=== PATIENT | female | born 2000 | race Caucasian/White ===

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

== ENCOUNTER 2018-01-16 15:51 | Emergency (ER) | payer MEDICAID ==
[~2018-01-16] VITALS: Ht 167.6 cm; Wt 68.2 kg
[2018-01-16 15:57] VITALS: Ht 167.6 cm; Wt 68.2 kg
[2018-01-16] MEDS ORDERED: EC-NAPROSYN500 MG PO (17:34)
[2018-01-16 17:43] VITALS: BP 120/77
== END 2018-01-16 17:43 | disposition home or self-care (01) ==
LOC: D.ER 15:51
DX: K08.89 Other specified disorders of teeth and supporting structures (principal)

== ENCOUNTER 2018-02-12 23:46 | Emergency (ER) | payer MEDICAID ==
[~2018-02-12] VITALS: Ht 167.6 cm; Wt 59.1 kg
[~2018-02-12 23:46] MED LIST changes: +EC-NAPROSYN500 MG PO
[2018-02-12 23:57] VITALS: BP 116/62; Ht 167.6 cm; Wt 59.1 kg
== END 2018-02-13 01:16 | disposition home or self-care (01) ==
LOC: D.ER 23:46
DX: T78.40XA Allergy, unspecified, initial encounter (principal); X58.XXXA Exposure to other specified factors, initial encounter; M54.2 Cervicalgia

== ENCOUNTER → 2018-07-05 12:03 | Outpatient (CLI) | payer MEDICAID ==
[~2018-07-05 12:03] MED LIST changes: +AMOXICILLIN500 M1; +FLAGYL500 MG PO; +HYDROCODON-ACE1 EAC2 PO; +TALWIN NX1 TAB PO; +VIBRAMYCIN 100100 MG PO; +VOLTAREN75 MG PO
[2018-07-05 12:21] LABS: BASOPHILS 0.2 % (0-2); EOSINOPHILS 2.6 % (0-7); HEMATOCRIT 33.3 % (36.0-48.0); HEMOGLOBIN 11.3 g/dL (12-16); LYMPHOCYTES 32.4 % (15-50); MCH 27.6 pg (26.0-34.0); MCHC 33.9 g/dL (31.0-37.0); MCV 81.4 fL (80.0-100.0); MEAN PLATELET VOLUME 9.9 fL (7.4-10.4); MONOCYTES 7.8 % (2-11); PLATELET COUNT 333 10x3/uL (130-400); RBC 4.09 10x6/uL (4.00-5.40); WBC 6.5 10x3/uL (4.8-10.8)
[2018-07-05 12:31] LABS: CALC OSMOLALITY 276 mosm/kg (275-300); CALCIUM 8.2 mg/dL (8.5-10.1); CHLORIDE - SERUM 105 mmol/L (98-107); CREATININE - SERUM 0.5 mg/dL (0.6-1.3); GLUCOSE 99 mg/dL (74-106); SODIUM 139 mmol/L (136-145); UREA NITROGEN 9 mg/dL (7-18); eGFR NON AFRICAN AMERICAN > 90 mL/min (90-120)
== END | disposition home or self-care (01) ==
LOC: D.LABREF 12:03
PROVIDERS: Internal Medicine Pulmonary Disease
DX: E84.9 Cystic fibrosis, unspecified (principal)

== ENCOUNTER 2018-07-07 17:46 | Emergency (ER) | payer MEDICAID ==
[~2018-07-07] VITALS: Ht 167.6 cm; Wt 68.2 kg
[~2018-07-07 17:46] MED LIST changes: -AMOXICILLIN500 M1; -FLAGYL500 MG PO; -HYDROCODON-ACE1 EAC2 PO; -TALWIN NX1 TAB PO; -VIBRAMYCIN 100100 MG PO; -VOLTAREN75 MG PO
[2018-07-07 18:19] LABS: BASOPHILS 0.2 % (0-2); EOSINOPHILS 2.7 % (0-7); HEMATOCRIT 32.5 % (36.0-48.0); HEMOGLOBIN 10.9 g/dL (12-16); IMMATURE GRANULOCYTES 0.2 % (0-5); LYMPHOCYTES 43.6 % (15-50); MCH 27.2 pg (26.0-34.0); MCHC 33.5 g/dL (31.0-37.0); MEAN PLATELET VOLUME 10.2 fL (7.4-10.4); MONOCYTES 7.3 % (2-11); PLATELET COUNT 341 10x3/uL (130-400); RBC 4.01 10x6/uL (4.00-5.40); RDW 12.8 % (11.5-14.5)
[2018-07-07 18:20] VITALS: BP 118/79; Ht 167.6 cm; Wt 68.2 kg
[2018-07-07 18:44] LABS: CALC OSMOLALITY 277 mosm/kg (275-300); CARBON DIOXIDE 25.5 mmol/L (21.0-32.0); CHLORIDE - SERUM 106 mmol/L (98-107); CREATININE - SERUM 0.5 mg/dL (0.6-1.3); GLUCOSE 75 mg/dL (74-106); POTASSIUM - SERUM 3.6 mmol/L (3.5-5.1); SODIUM 140 mmol/L (136-145); UREA NITROGEN 13 mg/dL (7-18); eGFR NON AFRICAN AMERICAN > 90 mL/min (90-120)
== END 2018-07-07 19:58 | disposition home or self-care (01) ==
LOC: D.ER 17:46
PROVIDERS: Emergency Medicine
DX: R21 Rash and other nonspecific skin eruption (principal)

== ENCOUNTER → 2018-07-07 19:18 | Outpatient (CLI) | payer MEDICAID ==
[2018-07-07 18:20] VITALS: BMI 24.2
== END | disposition home or self-care (01) ==
LOC: D.ER 19:18
PROVIDERS: ATTEND Internal Medicine Pulmonary Disease
DX: E84.9 Cystic fibrosis, unspecified (principal)

== ENCOUNTER 2018-07-27 23:03 | Emergency (ER) | payer MEDICAID ==
[~2018-07-27] VITALS: Ht 167.6 cm; Wt 69.5 kg
[2018-07-27 23:12] VITALS: Ht 167.6 cm; Wt 69.5 kg
[2018-07-27] MEDS ORDERED: HYDROCODON-ACE1 EAC2 PO (23:45)
[2018-07-28 00:31] VITALS: BP 127/85
== END 2018-07-28 00:32 | disposition home or self-care (01) ==
LOC: D.ER 23:03
DX: T23.202A Burn of second degree of left hand, unspecified site, initial encounter (principal); T23.201A Burn of second degree of right hand, unspecified site, initial encounter; T22.212A Burn of second degree of left forearm, initial encounter; T22.211A Burn of second degree of right forearm, initial encounter; X10.2XXA Contact with fats and cooking oils, initial encounter; Y93.G3 Activity, cooking and baking; Y92.010 Kitchen of single-family (private) house as the place of occurrence of the external cause

== ENCOUNTER 2018-08-07 19:50 | Emergency (ER) | payer MEDICAID ==
[~2018-08-07] VITALS: Ht 167.6 cm; Wt 69.9 kg
[~2018-08-07 19:50] MED LIST changes: +HYDROCODON-ACE1 EAC2 PO
[2018-08-07 19:53] VITALS: Ht 167.6 cm; Wt 69.9 kg
[2018-08-07] MEDS ORDERED: VOLTAREN75 MG PO (21:24)
[2018-08-07] MEDS ORDERED: VIBRAMYCIN 100100 MG PO (21:24)
[2018-08-07 21:43] VITALS: BP 119/76
== END 2018-08-07 21:44 | disposition home or self-care (01) ==
LOC: D.ER 19:50
DX: L03.113 Cellulitis of right upper limb (principal); T23.001A Burn of unspecified degree of right hand, unspecified site, initial encounter; X10.2XXA Contact with fats and cooking oils, initial encounter; Y93.89 Activity, other specified; Y92.89 Other specified places as the place of occurrence of the external cause

== ENCOUNTER 2018-10-02 13:25 | Emergency (ER) | payer MEDICAID ==
[~2018-10-02] VITALS: Ht 167.6 cm; Wt 68.2 kg
[~2018-10-02 13:25] MED LIST changes: +VIBRAMYCIN 100100 MG PO; +VOLTAREN75 MG PO
[2018-10-02 13:29] VITALS: Ht 167.6 cm; Wt 68.2 kg
[2018-10-02 13:54] LABS: APPEARANCE CLEAR (CLEAR); BILIRUBIN NEGATIVE (NEGATIVE); COLOR YELLOW (YELLOW); GLUCOSE NEGATIVE (NEGATIVE); HCG URINE NEGATIVE (NEGATIVE); KETONE NEGATIVE (NEGATIVE); NITRITE NEGATIVE (NEGATIVE); PROTEIN NEGATIVE (NEGATIVE); SPECIFIC GRAVITY 1.015 (1.005-1.020); UROBILINOGEN NORMAL (NORMAL)
[2018-10-02 13:57] LABS: BACTERIA FEW /hpf (NONE SEEN); EPITHELIAL CELLS 0-5 /hpf (0-5); RED CELLS - URINE 0-5 /hpf (0-5); WHITE CELLS - URINE 0-5 /hpf (0-5)
[2018-10-02 14:08] LABS: BASOPHILS 0.1 % (0-2); EOSINOPHILS 0.9 % (0-7); HEMATOCRIT 36.4 % (36.0-48.0); HEMOGLOBIN 12.4 g/dL (12-16); IMMATURE GRANULOCYTES 0.1 % (0-5); LYMPHOCYTES 23.8 % (15-50); MCH 27.3 pg (26.0-34.0); MCHC 34.1 g/dL (31.0-37.0); MEAN PLATELET VOLUME 9.7 fL (7.4-10.4); MONOCYTES 6.3 % (2-11); NEUTROPHILS 68.8 % (40-80); PLATELET COUNT 378 10x3/uL (130-400); RBC 4.55 10x6/uL (4.00-5.40); RDW 13.3 % (11.5-14.5); WBC 7.5 10x3/uL (4.8-10.8)
[2018-10-02 14:17] LABS: ALBUMIN 3.6 g/dL (3.4-5.0); ALKALINE PHOSPHATASE 137 U/L (46-116); ALT (SGPT) 39 U/L (10-68); BILIRUBIN - TOTAL 0.25 mg/dL (0.2-1.3); CALC OSMOLALITY 276 mosm/kg (275-300); CALCIUM 8.8 mg/dL (8.5-10.1); CARBON DIOXIDE 22.8 mmol/L (21.0-32.0); CHLORIDE - SERUM 104 mmol/L (98-107); CREATININE - SERUM 0.6 mg/dL (0.6-1.3); POTASSIUM - SERUM 3.9 mmol/L (3.5-5.1); PROTEIN - SERUM 7.9 g/dL (6.4-8.2); SODIUM 138 mmol/L (136-145); UREA NITROGEN 10 mg/dL (7-18); eGFR NON AFRICAN AMERICAN > 90 mL/min (90-120)
[2018-10-02] MEDS ORDERED: FLAGYL500 MG PO (14:20)
[2018-10-02 14:26] LABS: GLUCOSE 127 mg/dL (74-106)
[2018-10-02 15:03] VITALS: BP 122/74
== END 2018-10-02 15:04 | disposition home or self-care (01) ==
LOC: D.ER 13:25
PROVIDERS: Emergency Medicine
DX: A59.01 Trichomonal vulvovaginitis (principal); G43.909 Migraine, unspecified, not intractable, without status migrainosus

== ENCOUNTER 2018-10-16 12:30 | Emergency (ER) | payer MEDICAID ==
[~2018-10-16] VITALS: Ht 162.6 cm; Wt 68.2 kg
[~2018-10-16 12:30] MED LIST changes: +FLAGYL500 MG PO
[2018-10-16 12:35] VITALS: Ht 162.6 cm; Wt 68.2 kg
[2018-10-16] MEDS ORDERED: AMOXICILLIN500 M1 (12:36)
[2018-10-16] MEDS ORDERED: TALWIN NX1 TAB PO (14:23)
[2018-10-16 14:31] VITALS: BP 122/70
== END 2018-10-16 14:31 | disposition home or self-care (01) ==
LOC: D.ER 12:30
DX: K08.89 Other specified disorders of teeth and supporting structures (principal)

== ENCOUNTER 2020-08-30 03:48 | Inpatient (IN) | payer OTHER ==
[~2020-08-30] VITALS: Ht 162.6 cm; Wt 64.4 kg
[~2020-08-30 03:48] MED LIST changes: +AMOXICILLIN500 M1; +LEVOFLOXACIN500 MG PO; +MUCINEX DM ER1 EAC1 PO; +TALWIN NX1 TAB PO; +TESSALON PERLE100 MG PO; +ZITHROMAX500 MG PO; +ZYVOX600 MG PO
[2020-08-30] MEDS ORDERED: CLARITIN 10 MG10 MG PO (03:56)
[2020-08-30 04:14] LABS: BILIRUBIN NEGATIVE (NEGATIVE); KETONE NEGATIVE mg/dL (< 1+); NITRITE NEGATIVE (NEGATIVE); PH 5.5 (5.0-8.0); SQUAMOUS EPITHELIAL 1 HPF (0-4); UROBILINOGEN NORMAL mg/dL (< 2); WHITE CELLS - URINE 1 HPF (0-4)
[2020-08-30 04:17] LABS: UDS - AMPHET NEGATIVE QUAL (NEGATIVE); UDS - BARB NEGATIVE QUAL (NEGATIVE); UDS - BENZO NEGATIVE QUAL (NEGATIVE); UDS - COCAINE NEGATIVE QUAL (NEGATIVE); UDS - OPIATE POSITIVE QUAL (NEGATIVE); UDS - PCP NEGATIVE QUAL (NEGATIVE); UDS - THC NEGATIVE QUAL (NEGATIVE)
[2020-08-30 04:23] LABS: BASOPHILS 0.4 % (0-2); HEMATOCRIT 41.2 % (36.0-48.0); LYMPHOCYTES 37.9 % (15-50); MCH 29.7 pg (26.0-34.0); MCHC 33.9 g/dL (31.0-37.0); MCV 87.7 fL (80.0-100.0); MEAN PLATELET VOLUME 7.7 fL (7.4-10.4); MONOCYTES 8.5 % (2-11); NEUTROPHILS 48.2 % (40-80); PLATELET COUNT 349 10x3/uL (130-400); RDW 12.3 % (11.5-14.5); WBC 8.6 10x3/uL (4.8-10.8)
[2020-08-30 04:37] LABS: CALC OSMOLALITY 280 mosm/kg (275-300); CALCIUM 8.5 mg/dL (8.5-10.1); CHLORIDE - SERUM 103 mmol/L (98-107); CREATININE - SERUM 0.6 mg/dL (0.6-1.3); GLUCOSE 111 mg/dL (74-106); SODIUM 140 mmol/L (136-145); UREA NITROGEN 16 mg/dL (7-18); eGFR NON AFRICAN AMERICAN > 90 mL/min (90-120)
[2020-08-30 04:42] LABS: ALKALINE PHOSPHATASE 102 U/L (30-120); ALT (SGPT) 32 U/L (10-68); BILIRUBIN - TOTAL 0.25 mg/dL (0.2-1.3); PROTEIN - SERUM 7.3 g/dL (6.4-8.2)
[2020-08-30 04:44] LABS: C-REACTIVE PROTEIN < 0.2 mg/dL (0.0-0.9)
--- NOTE | 2020-08-30 06:30 | NUR ---
LAB AT BEDSIDE. BOTH SETS OF BLOOD CULTURES DRAWN AT THIS TIME.
[2020-08-30 11:07] VITALS: BP 107/71
--- NOTE | 2020-08-30 19:35 | NUR ---
RECEIVED REPORT, WILL ASSUME CARE OF PT, ASKING FOR PAIN MEDS, PT JUST HAD AT 164, EXPLAINED SHE COULD HAVE AT 2047, BED IS LOW, SRX2, CALL LIGHT IN REACH, WILL CONTINUE PLAN OF CARE
[2020-08-30 20:59] VITALS: BP 121/74
[2020-08-31 01:58] VITALS: BP 113/65
[2020-08-31 05:02] VITALS: BP 126/73
[2020-08-31 05:32] LABS: BASOPHILS 0.2 % (0-2); EOSINOPHILS 0.5 % (0-7); HEMATOCRIT 36.4 % (36.0-48.0); HEMOGLOBIN 12.2 g/dL (12-16); LYMPHOCYTES 31.4 % (15-50); MCH 29.7 pg (26.0-34.0); MCHC 33.5 g/dL (31.0-37.0); MCV 88.9 fL (80.0-100.0); MEAN PLATELET VOLUME 8.1 fL (7.4-10.4); MONOCYTES 8.9 % (2-11); PLATELET COUNT 353 10x3/uL (130-400); RDW 11.8 % (11.5-14.5); WBC 9.4 10x3/uL (4.8-10.8)
[2020-08-31 05:47] LABS: ALBUMIN 3.8 g/dL (3.4-5.0); ALKALINE PHOSPHATASE 77 U/L (30-120); ALT (SGPT) 26 U/L (10-68); BILIRUBIN - TOTAL 0.22 mg/dL (0.2-1.3); CALCIUM 8.4 mg/dL (8.5-10.1); CARBON DIOXIDE 26.5 mmol/L (21.0-32.0); CHLORIDE - SERUM 106 mmol/L (98-107); CREATININE - SERUM 0.6 mg/dL (0.6-1.3); GLUCOSE 123 mg/dL (74-106); MAGNESIUM - SERUM 1.7 mg/dL (1.8-2.4); PHOSPHOROUS 4.5 mg/dL (2.5-4.9); POTASSIUM - SERUM 3.6 mmol/L (3.5-5.1); PROTEIN - SERUM 6.3 g/dL (6.4-8.2); SODIUM 142 mmol/L (136-145); eGFR NON AFRICAN AMERICAN > 90 mL/min (90-120)
[2020-08-31 05:48] LABS: CALC OSMOLALITY 282 mosm/kg (275-300); UREA NITROGEN 11 mg/dL (7-18)
[2020-08-31 08:06] VITALS: BP 125/56
[2020-08-31 11:05] VITALS: Ht 162.6 cm; Wt 64.4 kg
--- NOTE | 2020-08-31 11:34 | NUR ---
NUTRITION CONSULT: Please see Nutrition Assessment dated 08/31/20 under ASSESSMENTS tab. Shawanda Lewis, MS, RD, LD
[2020-08-31 15:32] VITALS: BP 116/68
[2020-08-31 20:42] VITALS: BP 130/63
[2020-09-01 01:13] VITALS: BP 140/68
[2020-09-01 01:20] VITALS: BP 125/74
[2020-09-01 04:18] LABS: BASOPHILS 0.2 % (0-2); EOSINOPHILS 0 % (0-7); HEMATOCRIT 36.5 % (36.0-48.0); HEMOGLOBIN 12.5 g/dL (12-16); IMMATURE GRANULOCYTES 0.4 % (0-5); LYMPHOCYTE ABS# 2.17 10x3/uL (1.18-3.74); LYMPHOCYTES 20.5 % (15-50); MCH 30.3 pg (26.0-34.0); MCHC 34.2 g/dL (31.0-37.0); MCV 88.4 fL (80.0-100.0); MEAN PLATELET VOLUME 9.3 fL (7.4-10.4); MONOCYTES 5.5 % (2-11); NEUTROPHIL ABS# 7.78 10x3/uL (1.56-6.13); NEUTROPHILS 73.4 % (40-80); PLATELET COUNT 356 10x3/uL (130-400); RBC 4.13 10x6/uL (4.00-5.40); RDW 11.7 % (11.5-14.5); WBC 10.6 10x3/uL (4.8-10.8)
[2020-09-01 04:37] LABS: ALBUMIN 3.8 g/dL (3.4-5.0); ALKALINE PHOSPHATASE 95 U/L (30-120); ALT (SGPT) 31 U/L (10-68); BILIRUBIN - TOTAL 0.19 mg/dL (0.2-1.3); CALCIUM 8.2 mg/dL (8.5-10.1); CARBON DIOXIDE 27.5 mmol/L (21.0-32.0); CHLORIDE - SERUM 102 mmol/L (98-107); CREATININE - SERUM 0.7 mg/dL (0.6-1.3); MAGNESIUM - SERUM 1.9 mg/dL (1.8-2.4); PHOSPHOROUS 4.1 mg/dL (2.5-4.9); POTASSIUM - SERUM 3.8 mmol/L (3.5-5.1); PROTEIN - SERUM 7.1 g/dL (6.4-8.2); SODIUM 139 mmol/L (136-145); UREA NITROGEN 13 mg/dL (7-18); VANCOMYCIN - TROUGH 4.2 ug/mL (10.0-20.0); eGFR NON AFRICAN AMERICAN > 90 mL/min (90-120)
[2020-09-01 04:44] LABS: CALC OSMOLALITY 282 mosm/kg (275-300); GLUCOSE 196 mg/dL (74-106)
[2020-09-01 08:23] VITALS: BP 143/88
[2020-09-01 16:10] VITALS: BP 133/86
[2020-09-01 20:35] VITALS: BP 111/61
--- NOTE | 2020-09-01 21:02 | NUR ---
1924 PULMOZYME GIVEN VIA NEBULIZER
[2020-09-02 01:21] VITALS: BP 109/65
[2020-09-02 05:28] VITALS: BP 144/70
--- NOTE | 2020-09-02 08:13 | NUR ---
AM MEDS GIVEN AT THIS TIME. PT SITTING UP IN BED WITH HOB RAISED, RR EVEN NON LABORED ON ROOM AIR. PT AAOX4 , PLEASANT. FRESH DRINK GIVEN PER REQUEST. NO PAIN OR NEEDS VOICED AT THIS TIME. CLWR.
[2020-09-02 08:55] LABS: ALBUMIN 3.7 g/dL (3.4-5.0); ALKALINE PHOSPHATASE 113 U/L (30-120); BILIRUBIN - TOTAL 0.18 mg/dL (0.2-1.3); CALCIUM 8.5 mg/dL (8.5-10.1); CARBON DIOXIDE 30.8 mmol/L (21.0-32.0); CHLORIDE - SERUM 103 mmol/L (98-107); CREATININE - SERUM 0.6 mg/dL (0.6-1.3); MAGNESIUM - SERUM 1.8 mg/dL (1.8-2.4); PHOSPHOROUS 4.6 mg/dL (2.5-4.9); PROTEIN - SERUM 7.1 g/dL (6.4-8.2); SODIUM 140 mmol/L (136-145); eGFR NON AFRICAN AMERICAN > 90 mL/min (90-120)
[2020-09-02 08:56] LABS: BASOPHILS 0.4 % (0-2); HEMATOCRIT 38.9 % (36.0-48.0); HEMOGLOBIN 13.2 g/dL (12-16); LYMPHOCYTES 46.2 % (15-50); MCHC 33.9 g/dL (31.0-37.0); MCV 88.6 fL (80.0-100.0); MEAN PLATELET VOLUME 7.7 fL (7.4-10.4); MONOCYTES 9.6 % (2-11); NEUTROPHILS 40.8 % (40-80); PLATELET COUNT 385 10x3/uL (130-400); RBC 4.38 10x6/uL (4.00-5.40); RDW 12.3 % (11.5-14.5)
[2020-09-02 08:59] LABS: ALT (SGPT) 59 U/L (10-68); CALC OSMOLALITY 277 mosm/kg (275-300); GLUCOSE 98 mg/dL (74-106); UREA NITROGEN 9 mg/dL (7-18)
[2020-09-02 09:00] VITALS: BP 97/68
[2020-09-02 09:23] LABS: WBC 6.5 10x3/uL (4.8-10.8)
[2020-09-02 12:00] VITALS: BP 110/65
[2020-09-02] MEDS ORDERED: OMNICEF300 MG PO (12:06)
[2020-09-02] MEDS ORDERED: Pancrease 5000,17,00 PO (12:07)
--- NOTE | 2020-09-02 12:43 | NUR ---
NOTIFIED PT REGARDING PLAN TO D/C TODAY. PT STATES UNDERSTANDING. NO QUESTIONS VOICED. NO NEEDS VOICED AT THIS TIME. CLWR.
--- NOTE | 2020-09-02 13:47 | NUR ---
D/C INSTRUCTIONS GIVEN TO PT AT THIS TIME. PT STATES UNDERSTANDING, PRESCRIPTION GIVEN TO PT. PT DENIES ANY QUESTIONS. PT GATHERING BELONGINGS AND CALLED HER FAMILY FOR RIDE HOME. IV D/C , CATHETER INTACT, DRESSING APPLIED. CLWR.
--- NOTE | 2020-09-02 14:12 | NUR ---
PT REFUSED WHEELCHAIR D/C. PT AMBULATED WITH ALL BELONGINGS TO PRIVATE VEHICLE. NO DISTRESS NOTED ON DEPARTURE.
--- NOTE | 2020-09-02 14:29 | MORECARE ---
CASE MANAGEMENT DISCHARGE SUMMARY PATIENT: TEOFILO CLARKE UNIT: [id number] ADM DATE: 08/30/20 AGE: 19 : 98 SEX: F ROOM/BED: D.2133 AUTHOR: WENDY,DOC PHYSICIAN: REFERRING PHYSICIAN: RICHA DE JESUS MD DATE OF SERVICE: 09/02/20 Case Management Discharge Planning Summary COMMENTS ENTERED DATE: 09/02/20 14:24 CT COMMENT TYPE: Discharge Planning REVIEWER: Earline Pryor CM TO ASSESS DISCHARGE NEEDS, NO NEEDS VOICED, PT TO RETURN TO HOME OF PARENT WHO ARE PROVIDING TRANSPORTATION HOME. PT GETTING DISCHARRGE INSTURCTIONS FOR RN AT TIME TO IMM SIGNING. COPY SERVED TO PATIENT AND SIGNED COPY TO CHART. NO NEEDS AT THIS TIME. DCP REVIEW SUMMARY ANTICIPATED D/C DATE: 09/02/2020 EXPECTED LOS : 3 CASE STATUS: DCP Initiated INITIAL REVIEW: 08/30/2020 INITIAL REVIEWER: Earline Pryor FINAL DISCHARGE DISPOSITION: 01 : Home or Self Care (Routine Discharge) FINAL REVIEWER: FINAL REVIEW DATE: NMP [employer] Questions & Answers QUESTION: ANSWER : PATIENT: TEOFILO CLARKE ENCOUNTER: [id number] MEDICAL RECORD#: [id number] ADMISSION DATE: 08/30/2020 DISCHARGE DATE: 09/02/2020 ATTENDING MD: RICHA TELLO : AGE: 19 MARITAL STATUS: S DC PLAN ID: [id number] FACILITY: [facility] PRINTED ON: 09/02/20 14:29 CT All edits/amendments must be made on the electronic document DICTATION DATE: 09/02/20 142 TRANSFER ENGINEER: NUPUR 09/02/20 142 RPT#: [id number] DC DATE:09/02/20 STATUS: DIS IN [facility] [address] [place] [address] END OF REPORT
--- NOTE | 2020-09-03 16:25 | MORECARE ---
CASE MANAGEMENT DISCHARGE SUMMARY PATIENT: TEOFILO CLARKE UNIT: [id number] ADM DATE: 08/30/20 AGE: 19 : 98 SEX: F ROOM/BED: D.2133 AUTHOR: WENDY,DOC PHYSICIAN: REFERRING PHYSICIAN: RICHA DE JESUS MD DATE OF SERVICE: 09/03/20 Case Management Discharge Planning Summary COMMENTS ENTERED DATE: 09/02/20 14:24 CT COMMENT TYPE: Discharge Planning REVIEWER: Earline Pryor CM TO ASSESS DISCHARGE NEEDS, NO NEEDS VOICED, PT TO RETURN TO HOME OF PARENT WHO ARE PROVIDING TRANSPORTATION HOME. PT GETTING DISCHARRGE INSTURCTIONS FOR RN AT TIME TO IMM SIGNING. COPY SERVED TO PATIENT AND SIGNED COPY TO CHART. NO NEEDS AT THIS TIME. DCP REVIEW SUMMARY ANTICIPATED D/C DATE: 09/02/2020 EXPECTED LOS : 3 CASE STATUS: DCP Complete INITIAL REVIEW: 08/30/2020 INITIAL REVIEWER: Earline Pryor FINAL DISCHARGE DISPOSITION: 01 : Home or Self Care (Routine Discharge) FINAL REVIEWER: Earline Pryor FINAL REVIEW DATE: 09/03/2020 DCP [employer] Questions & Answers QUESTION: ANSWER : PATIENT: TEOFILO CLARKE ENCOUNTER: [id number] MEDICAL RECORD#: [id number] ADMISSION DATE: 08/30/2020 DISCHARGE DATE: 09/02/2020 ATTENDING MD: RICHA TELLO : AGE: 19 MARITAL STATUS: S DC PLAN ID: [id number] FACILITY: [facility] PRINTED ON: 09/03/20 16:25 CT All edits/amendments must be made on the electronic document DICTATION DATE: 09/03/201624 DIRECTOR OF NATIONAL SALES: NUPUR 09/03/201624 RPT#: [id number] DC DATE:09/02/20 STATUS: DIS IN [facility] [address] [place] [address] END OF REPORT
== END 2020-09-02 14:13 | disposition home or self-care (01) | DRG 177 ==
LOC: D.ER 03:48 → D.EDHOLD 05:18 → D.M2 05:18
PROVIDERS: Emergency Medicine; Family Medicine; Internal Medicine Pulmonary Disease; ADMIT Emergency Medicine; ATTEND Emergency Medicine
DX: E84.0 Cystic fibrosis with pulmonary manifestations (principal); J18.9 Pneumonia, unspecified organism; R04.2 Hemoptysis; K21.9 Gastro-esophageal reflux disease without esophagitis; G89.29 Other chronic pain